=== PATIENT | male | born 1950 | race Caucasian/White ===

== ENCOUNTER → 2020-08-09 10:47 | Outpatient (CLI) | payer MEDICARE, SELFPAY ==
--- NOTE | ~2020-08-09 | US_ITS ---
EXAMINATION: US abdomen complete DATE: 08/09/2020 11:33 INDICATION: Right flank pain. TECHNIQUE: Multiple grayscale and Doppler ultrasound images of the abdomen were obtained. COMPARISON: CT abdomen and pelvis 04/07/2015, 03/28/2015 FINDINGS: Abdominal aorta is normal in caliber. Inferior vena cava is normal. The visualized portions of the head and body of the pancreas are normal. There is a 4.9 cm hyperechoic mass in left hepatic lobe the demonstrated the enhancement pattern of a hemangioma on the prior CT. There is a 2.1 cm hype rechoic mass in the liver without correlate on the prior CT. There are cysts in the liver measuring u p to 1.0 cm. There is normal flow in main portal vein. The gallbladder is normal in size. No gallston es or gallbladder wall thickening. There was no sonographic Anaya sign. The spleen is normal in size . The kidneys are normal in size. IMPRESSION: 1. 2.1 cm hyperechoic liver mass. In the absence of known malignancy or chronic liver disease, this f inding is likely a benign mass such as a hemangioma. Reviewed, dictated and finalized at location A. IMPRESSION: 1. 2.1 cm hyperechoic liver mass. In the absence of known malignancy or chronic liver disease, this finding is likely a benign mass such as a hemangioma.
== END ==
PROVIDERS: PCP Family Medicine Adolescent Medicine; Visit Provider Family Medicine Adolescent Medicine
DX: R10.31 Right lower quadrant pain (principal)
CPT/HCPCS: 76700

== ENCOUNTER 2023-08-07 05:45 | Day surgery (SDC) | payer MEDICARE, SELFPAY ==
[2023-07-10 11:38] VITALS: BMI 24.0
[2023-07-17 13:30] VITALS: BMI 23.8
[2023-08-07 06:26] VITALS: BP 106/83; PULSE 73; RESP 16; TEMP 36.4; O2SAT 95; BMI 23.1
[2023-08-07 06:41] LABS: Glucose Point of Care 93 mg/dl (65-105)
--- NOTE | 2023-08-07 07:10 | PM.HPGS ---
History of Present Illness History of Present Illness Consent: Risks, benefits, and alternatives have been discussed and questions answered. Patient agrees to proceed with procedure. Chief complaint: History of Colon Polyps Narrative: Bhaskar Bills is a 73 year old male colonoscopy. Patient has a history of colon polyps in the past. He does have a brother who has had colon polyps as well. Patient reports that his current weight appetite and bowel movements are normal. Patient denies abdominal pain. He has had no bleeding. Review of Systems Review of Systems: All systems reviewed & are unremarkable except as noted in HPI and below PMFSH Past Medical History Medical History (Updated 08/07/23 @ 07:12 by Charbel Marinelli MD) Abnormal colonoscopy 05/24, polyp Repeat 05/29 Impacted cerumen of both ears Surgical History Surgical History (Updated 03/21/23 @ 06:36 by Jose Antonio Carrillo MD) H/O hernia repair x2 History of adenectomy History of sinus surgery Family History Family History Father Family history of kidney disease Mother Carcinoma of colon Sibling Colon polyp Other Hypertension Social History Social History Social History: Caffeine-decaf coffee Smoking packs per day: 1 Smoking cigarettes per day: 20.0 Years smoked: 45 Smoking pack-years: 45.00 Smoking status: Current every day smoker Tobacco type: cigarettes Second hand tobacco smoke exposure: Yes Alcohol intake: current Drinks per week: 3 Alcohol use details: socially Substance use: current Substance use type: marijuana Last use: occasional Living arrangements: with family Occupation/Education: retired Gender identity (if verbalized by the patient): Male Sexual Orientation (if Verbalized by the Patient): Straight or Heterosexual Spiritual care concerns: No Agree to blood products: Yes Meds Home Medications and Allergies Home Medications Medication Instructions Recorded Confirmed Type aspirin 81 mg tablet,delayed 81 mg PO DAILY 09/08/20 08/07/23 History release (Adult Low Dose Aspirin) tamsulosin 0.4 mg capsule 0.4 mg PO BID #180 caps 03/14/23 08/07/23 Rx felodipine 5 mg tablet,extended 5 mg PO DAILY #90 tabs 04/14/23 08/07/23 Rx release 24 hr lisinopril 20 mg tablet 20 mg PO BID #180 tabs 04/14/23 08/07/23 Rx montelukast 10 mg tablet 10 mg PO DAILY #90 tabs 05/30/23 08/07/23 Rx tadalafil 5 mg tablet 5 mg PO DAILY #90 tabs 06/10/23 08/07/23 Rx esomeprazole magnesium 40 mg 40 mg PO BID #180 caps 07/08/23 08/07/23 Rx capsule,delayed release evolocumab 140 mg/mL subcutaneous 140 mg subcut .2 weeks #4 mL 07/08/23 08/07/23 Rx pen injector (Marcello Colon) Allergies Allergy/AdvReac Type Severity Reaction Status Date / Time atorvastatin AdvReac Intermediate myalgias Verified 08/07/23 06:18 clarithromycin AdvReac Intermediate unknown Verified 08/07/23 06:18 ezetimibe AdvReac Intermediate myalgias Verified 08/07/23 06:18 rosuvastatin AdvReac Intermediate myalgias Verified 08/07/23 06:18 Vital Signs Vital Signs - 24 hr 08/07/23 06:26 Temperature 97.6 F Pulse Rate 73 Respiratory Rate 16 Blood Pressure 106/83 Pulse Oximetry 95 Oxygen Delivery Room Air Exam Narrative: Physical exam reveals patient to be alert. Vital signs stable. HEENT exam is unremarkable. Patient is anicteric. Lungs are clear to auscultation and percussion is without murmur or extra sounds. Abdomen sounds are present soft nontender with no organomegaly. Digital external rectal exam normal. Assessment and Plan Assessment and plan (1) History of colon polyps: Code(s): Z86.010 - Personal history of colonic polyps Status: Acute Assessment and Plan: Patient has a prior history of colon polyps. He presents today for screening colonoscopy. Noa
--- NOTE | 2023-08-07 07:33 | WPDANESEPPF ---
Anes - Initial Pre Proc Eval Procedure: Operation Date: 08/07/23 07:30 Proposed Procedures p Diagnostic Colonoscopy - Charbel Marinelli MD Date/Time: 08/07/23 07:33 Surgeon: Charbel Marinelli MD Pre Op Diagnosis: History of Colon Polyps Patient Data Age: 73 Gender: M Height: 1.85 m Weight: 79.6 kg Last Vital Signs Temp 36.4 C 08/07/23 06:26 Pulse 73 08/07/23 06:26 Resp 16 08/07/23 06:26 BP 106/83 08/07/23 06:26 Pulse Ox 95 08/07/23 06:26 O2 Del Method Room Air 08/07/23 06:26 Allergies Allergy/AdvReac Type Severity Reaction Status Date / Time atorvastatin AdvReac Intermediate myalgias Verified 08/07/23 06:18 clarithromycin AdvReac Intermediate unknown Verified 08/07/23 06:18 ezetimibe AdvReac Intermediate myalgias Verified 08/07/23 06:18 rosuvastatin AdvReac Intermediate myalgias Verified 08/07/23 06:18 Home Medications Medication Instructions Recorded Confirmed Type aspirin 81 mg tablet,delayed 81 mg PO DAILY 09/08/20 08/07/23 History release (Adult Low Dose Aspirin) tamsulosin 0.4 mg capsule 0.4 mg PO BID #180 caps 03/14/23 08/07/23 Rx felodipine 5 mg tablet,extended 5 mg PO DAILY #90 tabs 04/14/23 08/07/23 Rx release 24 hr lisinopril 20 mg tablet 20 mg PO BID #180 tabs 04/14/23 08/07/23 Rx montelukast 10 mg tablet 10 mg PO DAILY #90 tabs 05/30/23 08/07/23 Rx tadalafil 5 mg tablet 5 mg PO DAILY #90 tabs 06/10/23 08/07/23 Rx esomeprazole magnesium 40 mg 40 mg PO BID #180 caps 07/08/23 08/07/23 Rx capsule,delayed release evolocumab 140 mg/mL subcutaneous 140 mg subcut .2 weeks #4 mL 07/08/23 08/07/23 Rx pen injector (Marcello Colon) Laboratory Tests 08/07/23 06:38 POC Capillary Glucose 93 mg/dl (65-105) Patient hx anesthesia problems: other (difficulty urinating) Family hx anesthesia problems: none Results Review: All pre-operative results and documents have been reviewed as part of the pre-operative evaluation. [facility] Past Medical History Medical History Abnormal colonoscopy 05/24, polyp Repeat 05/29 Impacted cerumen of both ears Surgical History Surgical History H/O hernia repair x2 History of adenectomy History of sinus surgery Family History Family History Father Family history of kidney disease Mother Carcinoma of colon Sibling Colon polyp Other Hypertension Social History Social History Social History: Caffeine-decaf coffee Smoking packs per day: 1 Smoking cigarettes per day: 20.0 Years smoked: 45 Smoking pack-years: 45.00 Smoking status: Current every day smoker Tobacco type: cigarettes Second hand tobacco smoke exposure: Yes Alcohol intake: current Drinks per week: 3 Alcohol use details: socially Substance use: current Substance use type: marijuana Last use: occasional Living arrangements: with family Occupation/Education: retired Gender identity (if verbalized by the patient): Male Sexual Orientation (if Verbalized by the Patient): Straight or Heterosexual Spiritual care concerns: No Agree to blood products: Yes Anes - Eval Final PreProcedure Day of Procedure 08/07/23 07:33 Patient weight: normal Heart: regular rate and rhythm Lungs: decreased breath sounds Airway: Mallampati scale class II Neurological: alert and oriented Last oral intake: >/= 8 hours ASA classification: III Emergent: no Anesthetic plan: proceed Anesthesia type and monitoring: general GIVS and standard monitoring Results Review: All pre-operative results and documents have been reviewed as part of the pre-operative evaluation. Informed Consent: The patient's anesthetic plan and its attendant risks and benefits were discussed with the patient/family/POA. [facility]
[2023-08-07] MEDS: LACTATED RINGERS 1,000 ML 150 ML IV CONT (07:41)
[2023-08-07 07:58] VITALS: BP 116/73; PULSE 62; RESP 20; O2SAT 97
[2023-08-07 08:08] VITALS: BP 109/69; PULSE 65; RESP 16; O2SAT 97
[2023-08-07 08:18] VITALS: BP 119/82; PULSE 60; RESP 14; O2SAT 97
--- NOTE | 2023-08-07 08:27 | WPDANESPN ---
Anes - Prog Note Post-Op Date/Time: 08/07/23 08:27 Cardiovascular status: normal Respiratory status: normal Airway patency: baseline Mental status: baseline Post-Op hydration status: normal Vital Signs: Last Vital Signs Temp 36.4 C 08/07/23 06:26 Pulse 65 08/07/23 08:08 Resp 16 08/07/23 08:08 BP 109/69 08/07/23 08:08 Pulse Ox 97 08/07/23 08:08 O2 Del Method Room Air 08/07/23 08:08 Pain Score (VAS): 0 I/O: Intake & Output 08/06/23 08/07/23 08/07/23 23:59 07:59 15:59 Intake Total 500 Balance 500 08/07/23 06:38 POC Capillary Glucose 93 Patient Feedback: Patient satisfied with anesthetic care.
== END 2023-08-07 08:38 | disposition home or self-care (01) ==
PROVIDERS: PCP Family Medicine Adolescent Medicine; Visit Provider Internal Medicine Gastroenterology
PROC: 0DJD8ZZ Inspection of Lower Intestinal Tract, Via Natural or Artificial Opening Endoscopic (ICD-10-PCS; CPT 45378; principal; 2023-08-07 07:30)
DX: Z86.010 Personal history of colon polyps (principal); D12.2 Benign neoplasm of ascending colon; D12.5 Benign neoplasm of sigmoid colon; K64.8 Other hemorrhoids
CPT/HCPCS: 45385

== ENCOUNTER 2023-08-07 07:00 | Outpatient (NON) | payer MEDICARE, SELFPAY | END 2023-08-07 07:01 | disposition home or self-care (01) | PROVIDERS: PCP Family Medicine Adolescent Medicine; Visit Provider Internal Medicine Gastroenterology | DX: D12.2 Benign neoplasm of ascending colon (principal); K63.5 Polyp of colon; Z86.010 Personal history of colon polyps | CPT/HCPCS: 88305 ==

== ENCOUNTER 2024-03-30 12:41 | Outpatient (CLI) | payer MEDICARE, SELFPAY ==
--- NOTE | ~2024-03-30 | US_ITS ---
EXAMINATION: US carotid duplex BI DATE: 03/30/2024 13:35 INDICATION: Intermittent unilateral vision loss TECHNIQUE: Grayscale, color Doppler, and pulsed Doppler images of the cervical carotid arteries were obtained. The degree of vessel stenosis is placed in one of the following categories: normal, <50%, 5 0-69%, >=70% but less than near-occlusion, near-occlusion, or total occlusion. Note that percent sten osis relative to normal distal artery lumen diameter is indirectly measured from velocity measurement s as described by César, et al. Radiology 2003; 229:[id number]. COMPARISON: None. FINDINGS: RIGHT: The right common carotid artery (CCA) peak systolic velocity (PSV) is 98 cm/s. The right internal car otid artery (ICA) PSV is 62 cm/s. The right ICA end-diastolic velocity (EDV) is 24 cm/s. The right IC A/CCA PSV ratio is 0.6. Grayscale and color Doppler images yield an estimate of <50% diameter reducti on from plaque in the ICA. The external carotid artery (ECA) PSV is 81 cm/s. There is antegrade flow in the right vertebral artery. LEFT: The left CCA PSV is 68 cm/s. The left ICA PSV is 77 cm/s. The left ICA EDV is 27 cm/s. The left ICA/C CA PSV ratio is 1.1. Grayscale and color Doppler images yield an estimate of 1.1 diameter reduction f rom plaque in the ICA. The ECA PSV is 69 cm/s. There is antegrade flow in the left vertebral artery. IMPRESSION: 1. <50% stenosis in the right internal carotid artery. 2. <50% stenosis in the left internal carotid artery. Reviewed, dictated and finalized at location A. [employer]
== END 2024-03-30 12:42 | disposition home or self-care (01) ==
LOC: ANHIMG 12:42
PROVIDERS: PCP Family Medicine Adolescent Medicine; Visit Provider Family Medicine Adolescent Medicine
DX: I65.23 Occlusion and stenosis of bilateral carotid arteries (principal)
CPT/HCPCS: 93880